=== PATIENT | male | born 2000 | race American Indian/Alaskan Native ===

== ENCOUNTER 2018-10-20 19:26 | Inpatient (IN) | payer OTHER ==
[2018-10-20] MEDS ORDERED: NACL 0.9% 1000 ML 1,000 ML IV ONE (20:24)
[2018-10-20 20:29] LABS: Basophils % (Auto) 0.3 % (0.0-1.8); Eosinophils % (Auto) 0.1 % (0.0-4.3); Hemoglobin 14.3 gm/dl (11.8-15.2); Lymphocytes # (Auto) 0.6 K/mm3 (1.2-5.4); Lymphocytes % (Auto) 6.1 % (13.4-35.0); Mean Corpuscular HGB Conc 33 % (32-34); Mean Corpuscular Volume 80 fl (84-94); Monocytes # (Auto) 0.5 K/mm3 (0.0-0.8); Monocytes % (Auto) 5.2 % (0.0-7.3); Platelet Count 238 K/mm3 (140-440); Red Blood Count 5.51 M/mm3 (3.65-5.03); Red Cell Distribution Width 14.4 % (13.2-15.2)
--- NOTE | 2018-10-20 20:42 | Emergency Department Report ---
HPI - General Chief Complaint: Psych Time Seen by Provider: 10/20/18 20:18 - HPI HPI: 18-year-old [place] male presents to the emergency department, brought in by his father, with concern for depression and possible suicide attempt and questionable overdose. Patient's father says that they were having trouble locating him for most of the day but recently found him [place] to work. He had sent a text message to them that insinuated that he was depressed and going to end his life. He apparently mentioned something to them regarding taking a nonspecific amount of Aleve, Tylenol and possibly some other medications. Although the patient has been awake since they found him, he has been mostly nonverbal and nonresponsive. He does have a diagnosed history of depression but has not been on his medications for about one year. ED Past Medical Hx - Past Medical History Previous Medical History?: Yes Hx Diabetes: Yes Hx Psychiatric Treatment: Yes (depression) Hx Dementia: Yes - Surgical History Past Surgical History?: No - Social History Smoking Status: Never Smoker Substance Use Type: None - Medications Home Medications: Home Medications Medication Instructions Recorded Confirmed Last Taken Type No Known Home Medications [No 10/20/18 10/20/18 Unknown History Reported Home Medications] ED Review of Systems ROS: Stated complaint: MH EVAL/SUICIDAL Other details as noted in HPI Comment: Unobtainable due to pts medical conditions Physical Exam - Physical Exam Physical Exam: GENERAL: The patient is well-developed well-nourished. HEENT: Normocephalic. Atraumatic. Patient has moist mucous membranes. EYES: Extraocular motions are intact. Pupils are equal and reactive to light bilaterally. NECK: Supple. Trachea is midline. CHEST/LUNGS: Clear to auscultation. There is no respiratory distress noted. HEART/CARDIOVASCULAR: Regular. There is mild tachycardia. There is no obvious murmur. ABDOMEN: Abdomen is soft, nontender. Patient has normal bowel sounds. There is no abdominal distention. SKIN: Skin is warm and dry. NEURO: Patient is awake but nonverbal. Patient follows some commands. MUSCULOSKELETAL: There is no tenderness or deformity. There is no limitation range of motion. There is no evidence of acute injury. ED Medical Decision Making - Lab Data Result diagrams: 10/20/18 20:22 10/20/18 20:22 - EKG Data -: EKG Interpreted by [facility] EKG shows normal: sinus rhythm, axis, intervals, QRS complexes (LVH), ST-T waves Rate: tachycardia (102 bpm) - EKG Data When compared to previous EKG there are: previous EKG unavailable Interpretation: LVH - Radiology Data Radiology results: report reviewed EXAM: CT HEAD/BRAIN WO CON HISTORY: AMS COMPARISON: None available. TECHNIQUE: Axial images obtained skull base through vertex. FINDINGS: No acute intracranial hemorrhage, midline shift or pathologic extra axial fluid collection. Ventricles and cisterns are normal in size and configuration for the patient's age. Ernandez-white differentiation preserved. Calvarium grossly intact. Ocular globes are grossly unremarkable. Visualized para-nasal sinuses and mastoid air cells are clear. IMPRESSION: No grossly acute intracranial abnormality. Transcribed By: LMA Dictated By: CHRISTO BAKER MD Electronically Authenticated By: CHRISTO BAKER MD Signed Date/Time: 10/21/18 0203 - Medical Decision Making Patient presents with suicidal ideations and suicide attempt via overdose. The patient has been nonverbal so the suicidal ideations comes from a text message that he sent to his family. Somehow the family was able to show that the patient potentially overdosed on some combination of Tylenol PM and Aleve PM. All the patient's labs were unremarkable except for the Tylenol level which came back at 219. This is a toxic dose for even a four-hour ingestion but this is closer to about 8 hours. There is no elevation in the patient's LFTs or coags . Discussed the case with poison control who agrees with the treatment of Mucomyst/Acetadote. The patient has already received the one hour bolus and is currently getting the four-hour 50 mg per KG dosing. He is set up for the 100 mg per KG 16 hour dosing to be given afterwards. CT scan of the head did not show any bleed, shift, mass, ischemia or any other acute process. The patient has been made a 1013 secondary to the suicidal ideations and attempt. He will be a medical admission and has been accepted for admission by the hospitalist, Dr. Ireland. Critical Care Time: No Critical care attestation.: If time is entered above; I have spent that time in minutes in the direct care of this critically ill patient, excluding procedure time. ED Disposition Clinical Impression: Suicidal ideations Suicide attempt by acetaminophen overdose Qualifiers: Encounter type: initial encounter Qualified Code(s): T39.1X2A - Poisoning by 4- Aminophenol derivatives, intentional self-harm, initial encounter Depression Qualifiers: Depression Type: unspecified Qualified Code(s): F32.9 - Major depressive di sorder, single episode, unspecified Acetaminophen toxicity Qualifiers: Encounter type: initial encounter Injury intent: intentional self-harm Qualified Code(s): T39.1X2A - Poisoning by 4-Aminophenol derivatives, intentional self-harm, initial encounter Disposition: 09 OP ADMIT IP TO THIS HOSP Is pt being admited?: Yes Condition: Serious Referrals: PRIMARY CARE, [Primary Care Provider] - 3-5 Days Time of Disposition: 02:11
[2018-10-20 20:45] LABS: BUN/Creatinine Ratio 6; Blood Urea Nitrogen 4 mg/dL (9-20); Calcium 9.2 mg/dL (8.4-10.2); Hemolysis Index 6
[2018-10-20] MEDS: KCL 10MEQ/100ML 10 MEQ/100 ML BAG IV SCH ×2 (21:25→22:41)
[2018-10-20] MEDS ORDERED: ACETADOTE IV ONE ×2 (21:50→22:00)
[2018-10-20] MEDS ORDERED: D5W IV ONE (22:00)
[2018-10-20] MEDS ORDERED: ZOFRAN ONE (22:14)
[2018-10-20 22:20] LABS: Alanine Aminotransferase 9 units/L (7-56)
[2018-10-20 22:29] LABS: Bilirubin,Direct < 0.2 mg/dL (0-0.2)
[2018-10-20 23:20] LABS: INR 1.03 (0.87-1.13)
[2018-10-20 23:21] LABS: Partial Thromboplastin Time 34.5 Sec. (24.2-36.6)
[2018-10-21] MEDS ORDERED: ZOFRAN IV PRN (01:43)
[2018-10-21] MEDS ORDERED: D50W (25GM) Syringe IV PRN (01:45)
--- NOTE | 2018-10-21 02:03 | Cat Scan Report ---
FINAL REPORT EXAM: CT HEAD/BRAIN WO CON HISTORY: AMS COMPARISON: None available. TECHNIQUE: Axial images obtained skull base through vertex. FINDINGS: No acute intracranial hemorrhage, midline shift or pathologic extra axial fluid collection. Ventricle s and cisterns are normal in size and configuration for the patient's age. Ernandez-white differentiation preserved. Calvarium grossly intact. Ocular globes are grossly unremarkable. Visualized para-nasal s inuses and mastoid air cells are clear. IMPRESSION: No grossly acute intracranial abnormality.
[2018-10-21 02:23] LABS: Bilirubin,Urine NEG (Negative); Blood,Urine NEG (Negative); Color,Urine Straw (Yellow); Mucus,Urine FEW /HPF; Protein,Urine <15 mg/dL mg/dL (Negative); Urobilinogen,Urine < 2.0 mg/dL (<2.0)
[2018-10-21 02:34] LABS: Amphetamine Screen,Urine PRESUMPTIVE NEGATIVE; Benzodiazepines Screen,Urine PRESUMPTIVE NEGATIVE; Cannabinoid Screen,Urine PRESUMPTIVE NEGATIVE; Cocaine Screen,Urine PRESUMPTIVE NEGATIVE; Methadone Screen,Urine PRESUMPTIVE NEGATIVE; Opiate Screen,Urine PRESUMPTIVE NEGATIVE
[2018-10-21 02:34] LABS: Alanine Aminotransferase 9 units/L (7-56); Albumin 4.7 g/dL (3.9-5)
[2018-10-21 02:42] LABS: Bilirubin,Direct < 0.2 mg/dL (0-0.2)
--- NOTE | 2018-10-21 02:46 | History and Physical Report ---
CHIEF COMPLAINT: Drug overdose with Tylenol and nonsteroidal anti-inflammatory agent Aleve. HISTORY OF PRESENT ILLNESS: The patient is a 18-year-old male with past medical history of depression and suicidal ideation in the past. The patient was noted by family to be out of communication for most of day and was found in [place] prior to work. The patient sent a text message to the parents saying that he was depressed and is going to end his live and mention that he took an unknown amount of Aleve and Tylenol, possibly with other substances. There was no history of nausea or vomiting and no history of fever. The patient has not been on his antidepressant medication for some time prior to taking these overdose and was brought to the Emergency Room. PAST MEDICAL HISTORY: Pertinent for diabetes mellitus, depression, suicidal intention. The patient also has past history of dementia, memory impairment. PAST SURGICAL HISTORY: Unremarkable. FAMILY HISTORY: Noncontributory. SOCIAL HISTORY: The patient does not smoke, does not drink alcohol, and does not use illicit drugs. MEDICATIONS: The patient's home medications are not known at this time. ALLERGIES: There are no known drug allergies. REVIEW OF SYSTEMS: CONSTITUTIONAL: There is no fever, no chills, no diaphoresis. HEENT: There is no headache or sore throat. CARDIOVASCULAR SYSTEM: There is no chest pain or orthopnea. RESPIRATORY SYSTEM: There is no shortness of breath or cough. GASTROINTESTINAL SYSTEM: There is no nausea, no vomiting, no abdominal pain, diarrhea or constipation. NEUROLOGICAL SYSTEM: Decreased responsiveness noted. MUSCULOSKELETAL SYSTEM: There is no joint pain or swelling. DERMATOLOGICAL SYSTEM: There is no skin rash or itching. GENITOURINARY SYSTEM: There is no dysuria, hematuria, or flank pain. Rest of system review is normal. PHYSICAL EXAMINATION: GENERAL: At the time of exam, the patient was found to be lethargic and arousable, not in acute distress. VITAL SIGNS: Shows temperature of 97.8 degrees Fahrenheit, pulse of 100, respirations 16, blood pressure 141/83, O2 sat of 100% on room air. HEENT: Shows pupils to be round, reactive to light, and accommodating. NECK: Supple with no JVD or carotid bruits. CARDIOVASCULAR SYSTEM: Showed normal first and second heart sounds with no gallops or murmurs. RESPIRATORY SYSTEM: Show good air entry on both sides of the lungs with no abnormal breath sounds. GASTROINTESTINAL SYSTEM: Show abdomen to be full, soft, nontender with no organomegaly or rigidity. NEUROLOGICAL: Shows the patient to be lethargic, but arousable with no focal deficit. MUSCULOSKELETAL SYSTEM: Show no joint swelling or tenderness. DERMATOLOGICAL SYSTEM: Show no skin rash. GENITOURINARY SYSTEM: Showing no costovertebral angle tenderness. PERTINENT LABORATORY DATA AND IMAGING STUDIES: The patient will be following lab test done. CBC showed normal white count, normal hemoglobin and normal hematocrit with CBC differential showed elevated segmented neutrophil count of 88.3%. The patient's coagulation studies were unremarkable. Chemistry shows a low sodium level of 3.3 and patient's renal function test was unremarkable and toxicology screen shows unremarkable salicylate level and high acetaminophen level of 219.3. Plasma alcohol level was unremarkable. IMAGING STUDIES: No imaging studies were done at this time. DIAGNOSES: 1. Drug overdose with Tylenol and Aleve. 2. Hypokalemia. PLAN: 1. The patient will be admitted to ICU. 2. The patient will continue the IV acetylcysteine treatment already programmed by the pharmacy according to the Emergency Room request. 3. The patient will be on heparin 5000 units subcutaneous q. 12 hours for DVT prophylaxis. 4. The patient will have Accu-chek before meal and at bedtime, followed by low-dose sliding scale using regular insulin coverage. 5. The patient will have liver function test checked every 4 hours and Tylenol level monitored every 4 hours until the level becomes normal. 6. The patient will be on IV normal saline at 125 mL an hour. 7. The patient will have critical care consult with Dr. Bass. 8. The patient will be on consistent carbohydrate diet and also be on IV Zofran 4 mg every 8 hours for nausea and vomiting. JOB# [id number] OCN/NTS MTDD
[2018-10-21] MEDS ORDERED: D5W IV ONE ×2 (04:00)
[2018-10-21] MEDS ORDERED: ACETADOTE IV ONE ×2 (04:00)
[2018-10-21] MEDS ORDERED: NACL 0.9% 1000 ML 1,000 ML ONE (06:11)
[2018-10-21 06:20] LABS: Albumin 4.9 g/dL (3.9-5); Bilirubin,Direct 0.2 mg/dL (0-0.2)
[2018-10-21] MEDS: NACL 0.9% 1000 ML 1,000 ML IV SCH ×2 (06:24→21:45)
[2018-10-21] MEDS: HumuLIN R SUB-Q SCH ×4 (09:06→21:50)
--- NOTE | 2018-10-21 09:30 | Consultation ---
History of Present Illness Consult date: 10/21/18 Requesting physician: ELENA MTZ Reason for consult: other (Tylenol overdose) History of present illness: 18 y.o. AA male who presented to the ER for overdosing on Tylenol. He stated that he is dealing with a lot "internally." He stated that he would like to talk tomorrow so he can get his thoughts together. He did acknowledge that he took several Tylenol pills to kill himself prior to his arrival to the ER. Also, he stated that he is having relationship issues at this time.Per his mother Dorie Santa and brother Reji Carias who was at the bedside, they stated that the patient sent out a text message stating that he wanted to kill himself yesterday. He currently denies any chest pain, no shortness of breath, no fevers or chills. - Past Medical History Previous Medical History?: Yes Hx Diabetes: Yes Hx Psychiatric Treatment: Yes (depression) Hx Dementia: Yes - Surgical History Past Surgical History?: No - Social History Smoking Status: Never Smoker Substance Use Type: None Medications and Allergies Allergies Allergy/AdvReac Type Severity Reaction Status Date / Time No Known Allergies Allergy Verified 10/20/18 21:11 Home Medications Medication Instructions Recorded Confirmed Last Taken Type Cetirizine HCl 5 mg PO DAILY 10/23/18 10/23/18 Unknown History Sertraline [Zoloft] 25 mg PO QDAY #30 tablet 10/24/18 Unknown Rx Active Meds: Active Medications Dextrose (D50w (25gm) Syringe) 50 ml IV PRN PRN PRN Reason: Hypoglycemia Heparin Sodium (Porcine) (Heparin) 5,000 unit SUB-Q Q12HR [facility]ED[facility] Acetylcysteine 5,443 mg/ (Dextrose) 1,027.215 mls @ 64.201 mls/hr IV ONCE ONE Stop: 10/21/18 19:59 Last Admin: 10/21/18 04:31 Dose: 64.201 mls/hr Documented by: Sodium Chloride (Nacl 0.9% 1000 Ml) 1,000 mls @ 125 mls/hr IV DIRECT FREDDY Last Admin: 10/21/18 06:24 Dose: 125 mls/hr Documented by: Insulin Human Regular (Humulin R) 0 units SUB-Q AC FREDDY; Protocol Last Admin: 10/21/18 09:06 Dose: Not Given Documented by: Insulin Human Regular (Humulin R) 0 units SUB-Q QHS [facility]; Protocol Ondansetron HCl (Zofran) 4 mg IV Q8H PRN PRN Reason: Nausea And Vomiting Physical Examination Vital signs: Vital Signs Pulse Resp BP Pulse Ox 109 H 24 148/87 100 10/20/18 20:31 10/20/18 20:31 10/20/18 20:31 10/20/18 20:31 GENERAL: The patient is well-developed well-nourished. HEENT: Normocephalic. Atraumatic. Patient has moist mucous membranes. EYES: Extraocular motions are intact. Pupils are equal and reactive to light bilaterally. NECK: Supple. Trachea is midline. CHEST/LUNGS: Clear to auscultation. There is no respiratory distress noted. HEART/CARDIOVASCULAR: Regular. There is mild tachycardia. There is no obvious murmur. ABDOMEN: Abdomen is soft, nontender. Patient has normal bowel sounds. There is no abdominal distention. SKIN: Skin is warm and dry. NEURO: Patient is awake but nonverbal. Patient follows some commands. MUSCULOSKELETAL: There is no tenderness or deformity. There is no limitation range of motion. There is no evidence of acute injury. Results - Laboratory Findings CBC and BMP: 10/20/18 20:22 10/22/18 13:35 PT/INR, D-dimer PT 13.9 Sec. (12.2-14.9) 10/20/18 22:47 INR 1.03 (0.87-1.13) 10/20/18 22:47 Abnormal lab findings: Abnormal Labs 10/20/18 10/20/18 10/20/18 20:22 20:22 20:22 RBC MCV MCH Lymph % (Auto) Lymph # Seg Neutrophils % Seg Neutrophils # Potassium 3.3 L BUN 4 L Creatinine 0.7 L Glucose 131 H POC Glucose Salicylates < 0.3 L Acetaminophen 219.3 H* 10/20/18 10/21/18 10/21/18 20:22 01:56 05:53 RBC 5.51 H MCV 80 L MCH 26 L Lymph % (Auto) 6.1 L Lymph # 0.6 L Seg Neutrophils % 88.3 H Seg Neutrophils # 9.1 H Potassium BUN Creatinine Glucose POC Glucose Salicylates Acetaminophen 197.1 H 109.6 H 10/21/18 06:07 RBC MCV MCH Lymph % (Auto) Lymph # Seg Neutrophils % Seg Neutrophils # Potassium BUN Creatinine Glucose POC Glucose 106 H Salicylates Acetaminophen Assessment and Plan Drug overdose of Tylenol Hypokalemia Depression Diabetes - N acetyl cysteine per poison control protocol -Monitor and trend liver enzymes and hepatic synthetic function -Psych evaluation on going, possibly for inpatient care once medically clear -IV fluids -Accuchecks with glycemic control -VTE prophylaxis -Anti-depressants, monitor for hepatotoxicity -Replete electrolytes as indicated
[2018-10-21 10:46] LABS: Albumin 4.6 g/dL (3.9-5); Bilirubin,Direct 0.2 mg/dL (0-0.2)
[2018-10-21] MEDS: HEPARIN SUB-Q SCH ×2 (10:53→21:45)
[2018-10-21] MEDS ORDERED: HEPARIN ONE (10:53)
--- NOTE | 2018-10-21 13:42 | Consultation ---
History of Present Illness - Reason for Consult Consult date: 10/21/18 Reason for consult: Mental Health Evaluation Requesting physician: MIKEY STONE - Chief Complaint Chief complaint: "I have a lot on my mind" - History of Present Psychiatric Illness 18 y.o. AA male who presented to the ER for overdosing on Tylenol. Today the patient is calm , but guarded during the assessment. He stated that he is dealing with a lot "internally." He stated that he would like to talk tomorrow so he can get his thoughts together. He did acknowledge that he took several Tylenol pills to kill himself prior to his arrival to the ER. Also, he stated that he is having relationship issues at this time. Per collateral information from his mother Dorie Santa and brother Reji Carias who was at the bedside, they stated that the patient sent out a text message stating that he wanted to kill himself yesterday. The patient denies SI/HI's and AVH's. Medications and Allergies Allergies Allergy/AdvReac Type Severity Reaction Status Date / Time No Known Allergies Allergy Verified 10/20/18 21:11 Home Medications Medication Instructions Recorded Confirmed Last Taken Type No Known Home Medications [No 10/20/18 10/20/18 Unknown History Reported Home Medications] Active Meds: Active Medications Dextrose (D50w (25gm) Syringe) 50 ml IV PRN PRN PRN Reason: Hypoglycemia Heparin Sodium (Porcine) (Heparin) 5,000 unit SUB-Q Q12HR FREDDY Last Admin: 10/21/18 10:53 Dose: 5,000 unit Documented by: Acetylcysteine 5,443 mg/ (Dextrose) 1,027.215 mls @ 64.201 mls/hr IV ONCE ONE Stop: 10/21/18 19:59 Last Admin: 10/21/18 04:31 Dose: 64.201 mls/hr Documented by: Sodium Chloride (Nacl 0.9% 1000 Ml) 1,000 mls @ 125 mls/hr IV DIRECT FREDDY Last Admin: 10/21/18 06:24 Dose: 125 mls/hr Documented by: Insulin Human Regular (Humulin R) 0 units SUB-Q FREDDY; Protocol Last Admin: 10/21/18 12:05 Dose: Not Given Documented by: Insulin Human Regular (Humulin R) 0 units SUB-Q QHS FRED[facility]; Protocol Ondansetron HCl (Zofran) 4 mg IV Q8H PRN PRN Reason: Nausea And Vomiting Past psychiatric history - Past Medical History Past Medical History: No medical history Past Surgical History: No surgical history - past Psychiatric treatment and history psychiatric treatment history: Denies a psy hx and fam psy hx. Denies a fam psy hx. - Social History Social history: lives with family Mental Status Exam - Vital signs Last Vital Signs Temp 98.8 F 10/21/18 12:00 Pulse 93 H 10/21/18 12:00 Resp 20 10/21/18 12:00 BP 129/84 10/21/18 12:00 Pulse Ox 96 10/21/18 12:00 - Exam Narrative exam: MSE: Appearance: calm, cooperative Behavior: poor eye contact Speech: regular rate with a low tone Mood: guarded Affect: flat Thought Process: circumstantial Thought Content: denies SI/HI's and AVH's Motor Activity: sitting up in bed Cognition: A/O x3 Insight: variable Judgment: variable Results Result Diagrams: 10/20/18 20:22 10/20/18 20:22 Abnormal lab results 10/20/18 10/20/18 10/20/18 Range/Units 20:22 20:22 20:22 RBC (3.65-5.03) M/mm3 MCV (84-94) fl MCH (28-32) pg Lymph % (Auto) (13.4-35.0) % Lymph # (1.2-5.4) K/mm3 Seg Neutrophils % (40.0-70.0) % Seg Neutrophils # (1.8-7.7) K/mm3 Potassium 3.3 L (3.6-5.0) mmol/L BUN 4 L (9-20) mg/dL Creatinine 0.7 L (0.8-1.5) mg/dL Glucose 131 H (75-100) mg/dL POC Glucose (70-105) Total Bilirubin (0.1-1.2) mg/dL Salicylates < 0.3 L (2.8-20.0) mg/dL Acetaminophen 219.3 H* (10.0-30.0) ug/mL 10/20/18 10/21/18 10/21/18 Range/Units 20:22 01:56 05:53 RBC 5.51 H (3.65-5.03) M/mm3 MCV 80 L (84-94) fl MCH 26 L (28-32) pg Lymph % (Auto) 6.1 L (13.4-35.0) % Lymph # 0.6 L (1.2-5.4) K/mm3 Seg Neutrophils % 88.3 H (40.0-70.0) % Seg Neutrophils # 9.1 H (1.8-7.7) K/mm3 Potassium (3.6-5.0) mmol/L BUN (9-20) mg/dL Creatinine (0.8-1.5) mg/dL Glucose (75-100) mg/dL POC Glucose (70-105) Total Bilirubin (0.1-1.2) mg/dL Salicylates (2.8-20.0) mg/dL Acetaminophen 197.1 H 109.6 H (10.0-30.0) ug/mL 10/21/18 10/21/18 10/21/18 Range/Units 06:07 09:36 09:36 RBC (3.65-5.03) M/mm3 MCV (84-94) fl MCH (28-32) pg Lymph % (Auto) (13.4-35.0) % Lymph # (1.2-5.4) K/mm3 Seg Neutrophils % (40.0-70.0) % Seg Neutrophils # (1.8-7.7) K/mm3 Potassium (3.6-5.0) mmol/L BUN (9-20) mg/dL Creatinine (0.8-1.5) mg/dL Glucose (75-100) mg/dL POC Glucose 106 H (70-105) Total Bilirubin 1.40 H (0.1-1.2) mg/dL Salicylates (2.8-20.0) mg/dL Acetaminophen 53.7 H (10.0-30.0) ug/mL All other labs normal. Assessment and Plan Assessment and plan: Impression: MDD, Severe Type. Today the patient is calm, but guarded during the assessment. Tylenol level 53.7, trending downward. DDx: R/O Bipolar DO Recommendation/Plan: Continue 1013 and reassess the patient in 24 hours. Dispo: The patient will be referred to inpatient psy services once medically clear. Will staff with Dr Mariusz Meza.
[2018-10-21 14:44] LABS: Albumin 4.3 g/dL (3.9-5); Bilirubin,Direct 0.3 mg/dL (0-0.2)
[2018-10-22] MEDS: HumuLIN R SUB-Q SCH ×4 (07:30→21:44)
--- NOTE | 2018-10-22 09:04 | Progress Note ---
Assessment and Plan Patient alert, awake. Resting on room air.O2 saturation 98%. No complaint of chest pain, shortness of breath or abdominal pain.Patients Bilirubin 1.6. AST 11. ALT 7. Continue monitor liver enzymes. - Patient Problems (1) Acetaminophen toxicity Current Visit: Yes Status: Acute Qualifiers: Encounter type: initial encounter Injury intent: intentional self-harm Qualified Code(s): T39.1X2A - Poisoning by 4-Aminophenol derivatives, intentional self-harm, initial encounter Plan to address problem: Patient received N acetyl cysteine. Patients Bilirubin 1.6. AST 11, ALT 7. Continue monitor bilirubin and Liver enzymes. (2) Depression Current Visit: Yes Status: Acute Qualifiers: Depression Type: unspecified Qualified Code(s): F32.9 - Major depressive disorder, single episode, unspecified Plan to address problem: Management as per primary care and psychiatry. (3) Suicidal ideations Current Visit: Yes Status: Acute Plan to address problem: Recommend to consult psychiatry. Subjective Date of service: 10/22/18 Interval history: Patient alert, awake. Resting on room air.O2 saturation 98%. No complaint of chest pain, shortness of breath or abdominal pain. Patients Bilirubin 1.6. AST 11. ALT 7. Continue monitor liver enzymes. Objective Vital Signs - 12hr 10/21/18 10/22/18 10/22/18 21:00 01:12 06:13 Temperature 97.7 F 98.2 F Pulse Rate 53 L 63 Respiratory 20 18 18 Rate Blood Pressure 112/61 102/54 O2 Sat by Pulse 98 100 98 Oximetry 10/22/18 06:15 Temperature Pulse Rate 63 Respiratory Rate Blood Pressure O2 Sat by Pulse Oximetry Constitutional: no acute distress, alert Eyes: non-icteric ENT: oropharynx moist Ascultation: Bilateral: clear Cardiovascular: regular rate and rhythm Gastrointestinal: normoactive bowel sounds, soft, non-tender Integumentary: normal Extremities: no cyanosis, no edema Neurologic: normal mental status, non-focal exam, pupils equal and round, CN II- XII normal Psychiatric: mood appropriate CBC and BMP: 10/20/18 20:22 10/20/18 20:22 ABG, PT/INR, D-dimer: PT/INR, D-dimer PT 13.9 Sec. (12.2-14.9) 10/20/18 22:47 INR 1.03 (0.87-1.13) 10/20/18 22:47 Abnormal lab findings: Abnormal Labs 10/20/18 10/20/18 10/20/18 20:22 20:22 20:22 RBC MCV MCH Lymph % (Auto) Lymph # Seg Neutrophils % Seg Neutrophils # Potassium 3.3 L BUN 4 L Creatinine 0.7 L Glucose 131 H POC Glucose Total Bilirubin Direct Bilirubin Salicylates < 0.3 L Acetaminophen 219.3 H* 10/20/18 10/21/18 10/21/18 20:22 01:56 05:53 RBC 5.51 H MCV 80 L MCH 26 L Lymph % (Auto) 6.1 L Lymph # 0.6 L Seg Neutrophils % 88.3 H Seg Neutrophils # 9.1 H Potassium BUN Creatinine Glucose POC Glucose Total Bilirubin Direct Bilirubin Salicylates Acetaminophen 197.1 H 109.6 H 10/21/18 10/21/18 10/21/18 06:07 09:36 09:36 RBC MCV MCH Lymph % (Auto) Lymph # Seg Neutrophils % Seg Neutrophils # Potassium BUN Creatinine Glucose POC Glucose 106 H Total Bilirubin 1.40 H Direct Bilirubin Salicylates Acetaminophen 53.7 H 10/21/18 10/21/18 14:21 17:26 RBC MCV MCH Lymph % (Auto) Lymph # Seg Neutrophils % Seg Neutrophils # Potassium BUN Creatinine Glucose POC Glucose 115 H Total Bilirubin 1.60 H Direct Bilirubin 0.3 H Salicylates Acetaminophen
[2018-10-22] MEDS: NACL 0.9% 1000 ML 1,000 ML IV SCH ×2 (10:02→20:04)
[2018-10-22] MEDS: HEPARIN SUB-Q SCH ×2 (10:02→21:44)
--- NOTE | 2018-10-22 11:35 | XRay Report ---
AP CHEST: HISTORY: Possible aspiration AP view of the chest demonstrates a normal mediastinal and cardiac contour with clear lungs and normal bony and soft tissue structures. IMPRESSION: Unremarkable AP chest.
--- NOTE | 2018-10-22 12:42 | Progress Note ---
Assessment and Plan Assessment and plan: 19-year-old man with history of depression and previous suicide attempts. The patient was brought by his family for altered mental status. He had taken an unknown amounts of Aleve and Tylenol and possibly other substances. His labs indicated a very high acetaminophen level. Past medical history includes diabetes, depression, depression with suicidal intention Problems Drug overdose of Tylenol Hypokalemia Depression Diabetes Plan Patient has been treated with acetylcysteine for poison control protocol. tylenol level no longer elevated, continue IV fluids Insulin sliding scale for diabetes Repeat comprehensive metabolic panel today Psychiatric input appreciated, patient will be referred to inpatient psychiatric facility DVT prophylaxis and early ambulation History Interval history: Review of systems Constitutional: No fevers, no malaise, no joint pains CVS: No chest pain, no orthopnea, no dyspnea on exertion, no pedal edema GI: No abdominal pain, no diarrhea, no vomiting, no constipation Respiratory: No shortness of breath, no wheezing, no coughing Hospitalist Physical - Physical exam Narrative exam: General.: Appears well, no distress, nontoxic HEENT: Moist mucous membranes, extraocular muscles intact, no lymphadenopathy Neck: supple Cardiac: S1-S2 heard Lungs: clear to auscultation bilaterally Abdomen: soft , nontender, nondistended, bowel sounds positive Extremities: no edema clubbing or cyanosis Skin: no rash or lesions Neurologic: no gross focal deficits Psych: , calm and Cooperative - Constitutional Vitals: Temp Pulse Resp BP Pulse Ox 97.9 F 72 18 123/69 98 10/22/18 11:45 10/22/18 11:45 10/22/18 11:45 10/22/18 11:45 10/22/18 11:45 Results - Labs CBC & Chem 7: 10/20/18 20:22 10/20/18 20:22 Labs: Laboratory Last Values WBC 10.4 K/mm3 (4.5-11.0) 10/20/18 20:22 RBC 5.51 M/mm3 (3.65-5.03) H 10/20/18 20:22 Hgb 14.3 gm/dl (11.8-15.2) 10/20/18 20:22 Hct 44.0 % (35.5-45.6) 10/20/18 20:22 MCV 80 fl (84-94) L 10/20/18 20:22 MCH 26 pg (28-32) L 10/20/18 20:22 MCHC 33 % (32-34) 10/20/18 20:22 RDW 14.4 % (13.2-15.2) 10/20/18 20:22 Plt Count 238 K/mm3 (140-440) 10/20/18 20:22 Lymph % (Auto) 6.1 % (13.4-35.0) L 10/20/18 20:22 [place] % (Auto) 5.2 % (0.0-7.3) 10/20/18 20:22 Eos % (Auto) 0.1 % (0.0-4.3) 10/20/18 20:22 Baso % (Auto) 0.3 % (0.0-1.8) 10/20/18 20:22 Lymph # 0.6 K/mm3 (1.2-5.4) L 10/20/18 20:22 [place] # 0.5 K/mm3 (0.0-0.8) 10/20/18 20:22 Eos # 0.0 K/mm3 (0.0-0.4) 10/20/18 20:22 Baso # 0.0 K/mm3 (0.0-0.1) 10/20/18 20:22 Seg Neutrophils % 88.3 % (40.0-70.0) H 10/20/18 20:22 Seg Neutrophils # 9.1 K/mm3 (1.8-7.7) H 10/20/18 20:22 PT 13.9 Sec. (12.2-14.9) 10/20/18 22:47 INR 1.03 (0.87-1.13) 10/20/18 22:47 APTT 34.5 Sec. (24.2-36.6) 10/20/18 22:47 VBG pH 7.380 (7.320-7.420) 10/20/18 20:59 Sodium 142 mmol/L (137-145) 10/20/18 20:22 Potassium 3.3 mmol/L (3.6-5.0) L 10/20/18 20:22 Chloride 103.4 mmol/L (98-107) 10/20/18 20:22 Carbon Dioxide 25 mmol/L (22-30) 10/20/18 20:22 Anion Gap 17 mmol/L 10/20/18 20:22 BUN 4 mg/dL (9-20) L 10/20/18 20:22 Creatinine 0.7 mg/dL (0.8-1.5) L 10/20/18 20:22 Estimated GFR > 60 ml/min 10/20/18 20:22 BUN/Creatinine Ratio 6 % 10/20/18 20:22 Glucose 131 mg/dL (75-100) H 10/20/18 20:22 POC Glucose 81 (70-105) 10/21/18 21:48 Calcium 9.2 mg/dL (8.4-10.2) 10/20/18 20:22 Total Bilirubin 1.60 mg/dL (0.1-1.2) H 10/21/18 14:21 Direct Bilirubin 0.3 mg/dL (0-0.2) H 10/21/18 14:21 Indirect Bilirubin 1.3 mg/dL 10/21/18 14:21 AST 11 units/L (5-40) 10/21/18 14:21 ALT 7 units/L (7-56) 10/21/18 14:21 Alkaline Phosphatase 52 units/L (35-129) 10/21/18 14:21 Total Protein 6.7 g/dL (6.3-8.2) 10/21/18 14:21 Albumin 4.3 g/dL (3.9-5) 10/21/18 14:21 Albumin/Globulin Ratio 1.8 % 10/21/18 14:21 Urine Color Straw (Yellow) 10/21/18 02:14 Urine Turbidity Clear (Clear) 10/21/18 02:14 Urine pH 6.0 (5.0-7.0) 10/21/18 02:14 Ur Specific [place] 1.014 (1.003-1.030) 10/21/18 02:14 Urine Protein <15 mg/dl mg/dL (Negative) 10/21/18 02:14 Urine Glucose (UA) 50 mg/dL (Negative) 10/21/18 02:14 Urine Ketones 80 mg/dL (Negative) 10/21/18 02:14 Urine Blood Neg (Negative) 10/21/18 02:14 Urine Nitrite Neg (Negative) 10/21/18 02:14 Urine Bilirubin Neg (Negative) 10/21/18 02:14 Urine Urobilinogen < 2.0 mg/dL (<2.0) 10/21/18 02:14 Ur Leukocyte Esterase Neg (Negative) 10/21/18 02:14 Urine WBC (Auto) 1.0 /HPF (0.0-6.0) 10/21/18 02:14 Urine RBC (Auto) 1.0 /HPF (0.0-6.0) 10/21/18 02:14 U Epithel Cells (Auto) < 1.0 /HPF (0-13.0) 10/21/18 02:14 Urine Mucus Few /HPF 10/21/18 02:14 Salicylates < 0.3 mg/dL (2.8-20.0) L 10/20/18 20:22 Urine Opiates Screen Presumptive negative 10/21/18 02:14 Urine Methadone Screen Presumptive negative 10/21/18 02:14 Acetaminophen 24.4 ug/mL (10.0-30.0) 10/21/18 14:21 Ur Barbiturates Screen Presumptive negative 10/21/18 02:14 Ur Phencyclidine Scrn Presumptive negative 10/21/18 02:14 Ur Amphetamines Screen Presumptive negative 10/21/18 02:14 U Benzodiazepines Scrn Presumptive negative 10/21/18 02:14 Urine Cocaine Screen Presumptive negative 10/21/18 02:14 U Marijuana (THC) Screen Presumptive negative 10/21/18 02:14 Drugs of Abuse Note Disclamer 10/21/18 02:14 Plasma/Serum Alcohol < 0.01 % (0-0.07) 10/20/18 20:22
[2018-10-22 14:19] LABS: Alanine Aminotransferase 8 units/L (7-56); BUN/Creatinine Ratio 12; Blood Urea Nitrogen 7 mg/dL (9-20); Calcium 8.9 mg/dL (8.4-10.2); Hemolysis Index 19
--- NOTE | 2018-10-22 14:19 | Progress Note ---
Subjective - Reason for Consult Consult date: 10/22/18 Reason for consult: Psychiatric Follow-up Evaluation - Chief Complaint Chief complaint: "I feel good" Patient is a 18 y.o. AA male who presented to the ER for overdosing on Tylenol. Today the patient is calm and cooperative during the assessment. He appears to have a good support system. Patient's mom, dad, and sister at the bedside. He states that his stressors are related to his current relationship/financial stressors. Patient believes that he is not living up to his full potential. He reports fair sleep/appetite. He denies SI/HI's, A/VH's, and delusions . Today patient is less guarded. In the past patient reports that he has taken Prozac, which he thought was ineffective. Today patient expressed that he is willing to try medication management. Mental Status Exam - Vital signs Last Vital Signs Temp 97.9 F 10/22/18 11:45 Pulse 72 10/22/18 11:45 Resp 18 10/22/18 11:45 BP 123/69 10/22/18 11:45 Pulse Ox 98 10/22/18 11:45 - Exam Narrative exam: Mental Status Exam Appearance: calm, cooperative Behavior: regular eye contact Speech: regular rate with a low tone Mood: "I'm good"; less guarded Affect: constricted Thought Process: circumstantial Thought Content: denies SI/HI's, AVH's, delusions Motor Activity: sitting up in bed eating Cognition: A/O x3 Insight: variable Judgment: variable Assessment and Plan Impression: MDD, Severe Type. Today the patient is calm, but guarded during the assessment. Tylenol level 24.4, trending downward. Patient denies SI/HI's, A/VH's, and delusions. DDx: R/O Bipolar DO Recommendation/Plan: 1. Continue 1013 and reassess the patient in 24 hours. 2. Start Zoloft 25mg po QAM depression/anxiety. Discussed the possibility of increase suicidality/induced taj. Patient verbalizes understanding. 3. Will monitor mood, sleep, appetite, compliance, and side effects. Disposition: The patient will be referred to inpatient psychiatric services once medically clear. Will staff with Dr. Adwoa Meza.
[2018-10-22] MEDS ORDERED: TYLENOL PO PRN (17:01)
[2018-10-23] MEDS: NACL 0.9% 1000 ML 1,000 ML IV SCH ×2 (03:46→10:54)
[2018-10-23] MEDS: HumuLIN R SUB-Q SCH ×4 (07:30→21:57)
[2018-10-23] MEDS: ZOLOFT PO SCH (10:54)
[2018-10-23] MEDS: HEPARIN SUB-Q SCH ×2 (10:54→21:57)
--- NOTE | 2018-10-23 12:18 | Progress Note ---
Subjective - Reason for Consult Consult date: 10/23/18 Reason for consult: Psychiatry Follow-up - Chief Complaint Chief complaint: "I would like to go home" Patient is a 18 y.o. AA male who presented to the ER for overdosing on Tylenol. Today the patient is calm and cooperative during the assessment. He stated that he have some underlining issues that caused him to be depressed and overdose on Tylenol pills. He stated that he plan to reflect on his issues and discuss those things with me the provider tomorrow. He did state that his mental health is "better" today. He denies SI/HI's and AVH's. He denies any side effects of hie medication. His mother Dorie Santa was at the bedside. Mental Status Exam - Vital signs Last Vital Signs Temp 97.4 F L 10/23/18 11:17 Pulse 67 10/23/18 11:17 Resp 20 10/23/18 11:17 BP 124/71 10/23/18 11:17 Pulse Ox 99 10/23/18 11:17 - Exam Narrative exam: MSE: Appearance: calm, cooperative Behavior: regular eye contact Speech: regular rate and tone Mood: "okay" Affect: flat Thought Process: circumstantial Thought Content: denies HI's and AVH's Motor Activity: sitting up in bed Cognition: A/O x3 Insight: fair Judgment: variable Assessment and Plan Impression: MDD, Severe Type. Today the patient is calm and cooperative during the assessment. Tylenol level 24.4. DDx: R/O Bipolar DO Recommendation/Plan: Continue 1013 and Zoloft 25 mg PO daily for depression. Discussed possible suicidality/medication induced taj with the patient reference Zoloft. Dispo: The patient will be referred to inpatient psy services once medically clear. Will staff with Dr Jenkins.
--- NOTE | 2018-10-23 13:53 | Progress Note ---
Assessment and Plan Assessment and plan: 19-year-old man with history of depression and previous suicide attempts. The patient was brought by his family for altered mental status. He had taken an unknown amounts of Aleve and Tylenol and possibly other substances. His labs indicated a very high acetaminophen level. Past medical history includes diabetes, depression, depression with suicidal intention Problems Drug overdose of Tylenol Hypokalemia Depression Diabetes Plan Patient has been treated with acetylcysteine for poison control protocol. tylenol level no longer elevated, received IVF Insulin sliding scale for diabetes Medically optimized for dc to inpatient y facility Psychiatric input appreciated, patient will be referred to inpatient psychiatric facility DVT prophylaxis and early ambulation History Interval history: Review of systems Constitutional: No fevers, no malaise, no joint pains CVS: No chest pain, no orthopnea, no dyspnea on exertion, no pedal edema GI: No abdominal pain, no diarrhea, no vomiting, no constipation Respiratory: No shortness of breath, no wheezing, no coughing Hospitalist Physical - Physical exam Narrative exam: General.: Appears well, no distress, nontoxic HEENT: Moist mucous membranes, extraocular muscles intact, no lymphadenopathy Neck: supple Cardiac: S1-S2 heard Lungs: clear to auscultation bilaterally Abdomen: soft , nontender, nondistended, bowel sounds positive Extremities: no edema clubbing or cyanosis Skin: no rash or lesions Neurologic: no gross focal deficits Psych: , calm and Cooperative - Constitutional Vitals: Temp Pulse Resp BP Pulse Ox 97.4 F L 67 20 124/71 99 10/23/18 11:17 10/23/18 11:17 10/23/18 11:17 10/23/18 11:17 10/23/18 11:17 Results - Labs CBC & Chem 7: 10/20/18 20:22 10/22/18 13:35 Labs: Laboratory Last Values WBC 10.4 K/mm3 (4.5-11.0) 10/20/18 20:22 RBC 5.51 M/mm3 (3.65-5.03) H 10/20/18 20:22 Hgb 14.3 gm/dl (11.8-15.2) 10/20/18 20:22 Hct 44.0 % (35.5-45.6) 10/20/18 20:22 MCV 80 fl (84-94) L 10/20/18 20:22 MCH 26 pg (28-32) L 10/20/18 20:22 MCHC 33 % (32-34) 10/20/18 20:22 RDW 14.4 % (13.2-15.2) 10/20/18 20:22 Plt Count 238 K/mm3 (140-440) 10/20/18 20:22 Lymph % (Auto) 6.1 % (13.4-35.0) L 10/20/18 20:22 [place] % (Auto) 5.2 % (0.0-7.3) 10/20/18 20:22 Eos % (Auto) 0.1 % (0.0-4.3) 10/20/18 20:22 Baso % (Auto) 0.3 % (0.0-1.8) 10/20/18 20:22 Lymph # 0.6 K/mm3 (1.2-5.4) L 10/20/18 20:22 [place] # 0.5 K/mm3 (0.0-0.8) 10/20/18 20:22 Eos # 0.0 K/mm3 (0.0-0.4) 10/20/18 20:22 Baso # 0.0 K/mm3 (0.0-0.1) 10/20/18 20:22 Seg Neutrophils % 88.3 % (40.0-70.0) H 10/20/18 20:22 Seg Neutrophils # 9.1 K/mm3 (1.8-7.7) H 10/20/18 20:22 PT 13.9 Sec. (12.2-14.9) 10/20/18 22:47 INR 1.03 (0.87-1.13) 10/20/18 22:47 APTT 34.5 Sec. (24.2-36.6) 10/20/18 22:47 VBG pH 7.380 (7.320-7.420) 10/20/18 20:59 Sodium 141 mmol/L (137-145) 10/22/18 13:35 Potassium 4.1 mmol/L (3.6-5.0) D 10/22/18 13:35 Chloride 105.1 mmol/L (98-107) 10/22/18 13:35 Carbon Dioxide 26 mmol/L (22-30) 10/22/18 13:35 Anion Gap 14 mmol/L 10/22/18 13:35 BUN 7 mg/dL (9-20) L 10/22/18 13:35 Creatinine 0.6 mg/dL (0.8-1.5) L 10/22/18 13:35 Estimated GFR > 60 ml/min 10/22/18 13:35 BUN/Creatinine Ratio 12 % 10/22/18 13:35 Glucose 94 mg/dL (75-100) 10/22/18 13:35 POC Glucose 90 (70-105) 10/22/18 21:19 Calcium 8.9 mg/dL (8.4-10.2) 10/22/18 13:35 Total Bilirubin 0.60 mg/dL (0.1-1.2) 10/22/18 13:35 Direct Bilirubin 0.3 mg/dL (0-0.2) H 10/21/18 14:21 Indirect Bilirubin 1.3 mg/dL 10/21/18 14:21 AST 11 units/L (5-40) 10/22/18 13:35 ALT 8 units/L (7-56) 10/22/18 13:35 Alkaline Phosphatase 48 units/L (35-129) 10/22/18 13:35 Total Protein 6.0 g/dL (6.3-8.2) L 10/22/18 13:35 Albumin 4.0 g/dL (3.9-5) 10/22/18 13:35 Albumin/Globulin Ratio 2.0 % 10/22/18 13:35 Urine Color Straw (Yellow) 10/21/18 02:14 Urine Turbidity Clear (Clear) 10/21/18 02:14 Urine pH 6.0 (5.0-7.0) 10/21/18 02:14 Ur Specific [place] 1.014 (1.003-1.030) 10/21/18 02:14 Urine Protein <15 mg/dl mg/dL (Negative) 10/21/18 02:14 Urine Glucose (UA) 50 mg/dL (Negative) 10/21/18 02:14 Urine Ketones 80 mg/dL (Negative) 10/21/18 02:14 Urine Blood Neg (Negative) 10/21/18 02:14 Urine Nitrite Neg (Negative) 10/21/18 02:14 Urine Bilirubin Neg (Negative) 10/21/18 02:14 Urine Urobilinogen < 2.0 mg/dL (<2.0) 10/21/18 02:14 Ur Leukocyte Esterase Neg (Negative) 10/21/18 02:14 Urine WBC (Auto) 1.0 /HPF (0.0-6.0) 10/21/18 02:14 Urine RBC (Auto) 1.0 /HPF (0.0-6.0) 10/21/18 02:14 U Epithel Cells (Auto) < 1.0 /HPF (0-13.0) 10/21/18 02:14 Urine Mucus Few /HPF 10/21/18 02:14 Salicylates < 0.3 mg/dL (2.8-20.0) L 10/20/18 20:22 Urine Opiates Screen Presumptive negative 10/21/18 02:14 Urine Methadone Screen Presumptive negative 10/21/18 02:14 Acetaminophen 24.4 ug/mL (10.0-30.0) 10/21/18 14:21 Ur Barbiturates Screen Presumptive negative 10/21/18 02:14 Ur Phencyclidine Scrn Presumptive negative 10/21/18 02:14 Ur Amphetamines Screen Presumptive negative 10/21/18 02:14 U Benzodiazepines Scrn Presumptive negative 10/21/18 02:14 Urine Cocaine Screen Presumptive negative 10/21/18 02:14 U Marijuana (THC) Screen Presumptive negative 10/21/18 02:14 Drugs of Abuse Note Disclamer 10/21/18 02:14 Plasma/Serum Alcohol < 0.01 % (0-0.07) 10/20/18 20:22
--- NOTE | 2018-10-23 13:54 | Progress Note ---
Assessment and Plan Tylenol Overdose Suicidal Ideation Depression Diabetes - continue 1 on 1 sitter - prn oxygen for sats < 90% - complete psychiatry evaluation - PT/OT - GI & VTE prophylaxis - continue other care per attending / other consultants ... will see prn Subjective Date of service: 10/23/18 Principal diagnosis: Tylenol Overdose; Deppression; Diabetes Interval history: Patient is seen today for: Tylenol Overdose; Suicidal Ideation; Depression; Diabetes Seen and examined at bedside; 24hour events reviewed; nursing and respiratory care staff consulted; no adverse overnight events reported to me; up in chair; family visiting; feels better; denies acute chest pains or palpitations; no new issues otherwise Objective Vital Signs - 12hr 10/23/18 10/23/18 10/23/18 05:44 06:45 11:17 Temperature 97.9 F 97.4 F L Pulse Rate 58 L 57 L 67 Respiratory 16 20 Rate Blood Pressure 111/57 Blood Pressure 124/71 [Right] O2 Sat by Pulse 99 99 Oximetry Constitutional: no acute distress, alert Eyes: non-icteric ENT: oropharynx moist Neck: supple, no lymphadenopathy, no JVD Effort: normal Ascultation: Bilateral: clear Percussion: Bilateral: not dull Cardiovascular: regular rate and rhythm Gastrointestinal: normoactive bowel sounds, soft, non-tender, non-distended Integumentary: normal Extremities: no cyanosis, no edema, pulses normal, no ischemia or petechiae Neurologic: normal mental status, non-focal exam, pupils equal and round, CN II- XII normal Psychiatric: mood appropriate, affect normal CBC and BMP: 10/20/18 20:22 10/22/18 13:35 ABG, PT/INR, D-dimer: PT/INR, D-dimer PT 13.9 Sec. (12.2-14.9) 10/20/18 22:47 INR 1.03 (0.87-1.13) 10/20/18 22:47 Abnormal lab findings: Abnormal Labs 10/20/18 10/20/18 10/20/18 20:22 20:22 20:22 RBC MCV MCH Lymph % (Auto) Lymph # Seg Neutrophils % Seg Neutrophils # Potassium 3.3 L BUN 4 L Creatinine 0.7 L Glucose 131 H POC Glucose Total Bilirubin Direct Bilirubin Total Protein Salicylates < 0.3 L Acetaminophen 219.3 H* 10/20/18 10/21/18 10/21/18 20:22 01:56 05:53 RBC 5.51 H MCV 80 L MCH 26 L Lymph % (Auto) 6.1 L Lymph # 0.6 L Seg Neutrophils % 88.3 H Seg Neutrophils # 9.1 H Potassium BUN Creatinine Glucose POC Glucose Total Bilirubin Direct Bilirubin Total Protein Salicylates Acetaminophen 197.1 H 109.6 H 10/21/18 10/21/18 10/21/18 06:07 09:36 09:36 RBC MCV MCH Lymph % (Auto) Lymph # Seg Neutrophils % Seg Neutrophils # Potassium BUN Creatinine Glucose POC Glucose 106 H Total Bilirubin 1.40 H Direct Bilirubin Total Protein Salicylates Acetaminophen 53.7 H 10/21/18 10/21/18 10/22/18 14:21 17:26 13:35 RBC MCV MCH Lymph % (Auto) Lymph # Seg Neutrophils % Seg Neutrophils # Potassium BUN 7 L Creatinine 0.6 L Glucose POC Glucose 115 H Total Bilirubin 1.60 H Direct Bilirubin 0.3 H Total Protein 6.0 L Salicylates Acetaminophen Chest x-ray: image reviewed (no acute process) Allied health notes reviewed: nursing
[2018-10-23] MEDS ORDERED: BENADRYL PO PRN (14:12)
[2018-10-23] MEDS ORDERED: CETIRIZINE HCL 5 MG PO SCH (14:15)
--- NOTE | 2018-10-24 07:44 | Progress Note ---
Assessment and Plan Assessment and plan: 19-year-old man with history of depression and previous suicide attempts. The patient was brought by his family for altered mental status. He had taken an unknown amounts of Aleve and Tylenol and possibly other substances. His labs indicated a very high acetaminophen level. Past medical history includes diabetes, depression, depression with suicidal intention Problems Drug overdose of Tylenol Hypokalemia Depression Diabetes Plan Patient has been treated with acetylcysteine for poison control protocol. tylenol level no longer elevated, received IVF Insulin sliding scale for diabetes Medically optimized for dc to inpatient y facility Psychiatric input appreciated, patient will be referred to inpatient psychiatric facility DVT prophylaxis and early ambulation History Interval history: Review of systems Constitutional: No fevers, no malaise, no joint pains CVS: No chest pain, no orthopnea, no dyspnea on exertion, no pedal edema GI: No abdominal pain, no diarrhea, no vomiting, no constipation Respiratory: No shortness of breath, no wheezing, no coughing Hospitalist Physical - Physical exam Narrative exam: General.: Appears well, no distress, nontoxic HEENT: Moist mucous membranes, extraocular muscles intact, no lymphadenopathy Neck: supple Cardiac: S1-S2 heard Lungs: clear to auscultation bilaterally Abdomen: soft , nontender, nondistended, bowel sounds positive Extremities: no edema clubbing or cyanosis Skin: no rash or lesions Neurologic: no gross focal deficits Psych: , calm and Cooperative - Constitutional Vitals: Temp Pulse Resp BP Pulse Ox 98.2 F 100 H 24 133/69 100 10/24/18 04:17 10/24/18 04:17 10/24/18 04:17 10/24/18 04:17 10/24/18 04:17 Results - Labs CBC & Chem 7: 10/20/18 20:22 10/22/18 13:35 Labs: Laboratory Last Values WBC 10.4 K/mm3 (4.5-11.0) 10/20/18 20:22 RBC 5.51 M/mm3 (3.65-5.03) H 10/20/18 20:22 Hgb 14.3 gm/dl (11.8-15.2) 10/20/18 20:22 Hct 44.0 % (35.5-45.6) 10/20/18 20:22 MCV 80 fl (84-94) L 10/20/18 20:22 MCH 26 pg (28-32) L 10/20/18 20:22 MCHC 33 % (32-34) 10/20/18 20:22 RDW 14.4 % (13.2-15.2) 10/20/18 20:22 Plt Count 238 K/mm3 (140-440) 10/20/18 20:22 Lymph % (Auto) 6.1 % (13.4-35.0) L 10/20/18 20:22 [place] % (Auto) 5.2 % (0.0-7.3) 10/20/18 20:22 Eos % (Auto) 0.1 % (0.0-4.3) 10/20/18 20:22 Baso % (Auto) 0.3 % (0.0-1.8) 10/20/18 20:22 Lymph # 0.6 K/mm3 (1.2-5.4) L 10/20/18 20:22 [place] # 0.5 K/mm3 (0.0-0.8) 10/20/18 20:22 Eos # 0.0 K/mm3 (0.0-0.4) 10/20/18 20:22 Baso # 0.0 K/mm3 (0.0-0.1) 10/20/18 20:22 Seg Neutrophils % 88.3 % (40.0-70.0) H 10/20/18 20:22 Seg Neutrophils # 9.1 K/mm3 (1.8-7.7) H 10/20/18 20:22 PT 13.9 Sec. (12.2-14.9) 10/20/18 22:47 INR 1.03 (0.87-1.13) 10/20/18 22:47 APTT 34.5 Sec. (24.2-36.6) 10/20/18 22:47 VBG pH 7.380 (7.320-7.420) 10/20/18 20:59 Sodium 141 mmol/L (137-145) 10/22/18 13:35 Potassium 4.1 mmol/L (3.6-5.0) D 10/22/18 13:35 Chloride 105.1 mmol/L (98-107) 10/22/18 13:35 Carbon Dioxide 26 mmol/L (22-30) 10/22/18 13:35 Anion Gap 14 mmol/L 10/22/18 13:35 BUN 7 mg/dL (9-20) L 10/22/18 13:35 Creatinine 0.6 mg/dL (0.8-1.5) L 10/22/18 13:35 Estimated GFR > 60 ml/min 10/22/18 13:35 BUN/Creatinine Ratio 12 % 10/22/18 13:35 Glucose 94 mg/dL (75-100) 10/22/18 13:35 POC Glucose 65 (70-105) L 10/23/18 21:16 Calcium 8.9 mg/dL (8.4-10.2) 10/22/18 13:35 Total Bilirubin 0.60 mg/dL (0.1-1.2) 10/22/18 13:35 Direct Bilirubin 0.3 mg/dL (0-0.2) H 10/21/18 14:21 Indirect Bilirubin 1.3 mg/dL 10/21/18 14:21 AST 11 units/L (5-40) 10/22/18 13:35 ALT 8 units/L (7-56) 10/22/18 13:35 Alkaline Phosphatase 48 units/L (35-129) 10/22/18 13:35 Total Protein 6.0 g/dL (6.3-8.2) L 10/22/18 13:35 Albumin 4.0 g/dL (3.9-5) 10/22/18 13:35 Albumin/Globulin Ratio 2.0 % 10/22/18 13:35 Urine Color Straw (Yellow) 10/21/18 02:14 Urine Turbidity Clear (Clear) 10/21/18 02:14 Urine pH 6.0 (5.0-7.0) 10/21/18 02:14 Ur Specific [place] 1.014 (1.003-1.030) 10/21/18 02:14 Urine Protein <15 mg/dl mg/dL (Negative) 10/21/18 02:14 Urine Glucose (UA) 50 mg/dL (Negative) 10/21/18 02:14 Urine Ketones 80 mg/dL (Negative) 10/21/18 02:14 Urine Blood Neg (Negative) 10/21/18 02:14 Urine Nitrite Neg (Negative) 10/21/18 02:14 Urine Bilirubin Neg (Negative) 10/21/18 02:14 Urine Urobilinogen < 2.0 mg/dL (<2.0) 10/21/18 02:14 Ur Leukocyte Esterase Neg (Negative) 10/21/18 02:14 Urine WBC (Auto) 1.0 /HPF (0.0-6.0) 10/21/18 02:14 Urine RBC (Auto) 1.0 /HPF (0.0-6.0) 10/21/18 02:14 U Epithel Cells (Auto) < 1.0 /HPF (0-13.0) 10/21/18 02:14 Urine Mucus Few /HPF 10/21/18 02:14 Salicylates < 0.3 mg/dL (2.8-20.0) L 10/20/18 20:22 Urine Opiates Screen Presumptive negative 10/21/18 02:14 Urine Methadone Screen Presumptive negative 10/21/18 02:14 Acetaminophen < 5.0 ug/mL (10.0-30.0) L 10/24/18 00:58 Ur Barbiturates Screen Presumptive negative 10/21/18 02:14 Ur Phencyclidine Scrn Presumptive negative 10/21/18 02:14 Ur Amphetamines Screen Presumptive negative 10/21/18 02:14 U Benzodiazepines Scrn Presumptive negative 10/21/18 02:14 Urine Cocaine Screen Presumptive negative 10/21/18 02:14 U Marijuana (THC) Screen Presumptive negative 10/21/18 02:14 Drugs of Abuse Note Disclamer 10/21/18 02:14 Plasma/Serum Alcohol < 0.01 % (0-0.07) 10/20/18 20:22
[2018-10-24] MEDS: HumuLIN R SUB-Q SCH ×3 (08:13→17:25)
[2018-10-24] MEDS: ZOLOFT PO SCH (09:52)
[2018-10-24] MEDS: HEPARIN SUB-Q SCH (09:53)
[2018-10-24] MEDS ORDERED: CLARITIN PO SCH (10:00)
--- NOTE | 2018-10-24 12:13 | Progress Note ---
Assessment and Plan Tylenol Overdose Suicidal Ideation Depression Diabetes - continue 1 on 1 sitter - prn oxygen for sats < 90% - complete psychiatry evaluation - glycemic control with SSI - PT/OT - GI & VTE prophylaxis - continue other care per attending / other consultants ... will see prn Subjective Date of service: 10/24/18 Principal diagnosis: Tylenol Overdose; Deppression; Diabetes Interval history: Patient is seen today for: Tylenol Overdose; Suicidal Ideation; Depression; Diabetes Seen and examined at bedside; 24hour events reviewed; nursing and respiratory care staff consulted; no adverse overnight events reported to me; up in chair; continues to do well; denies chest pains; no suicidal ideations; tentatively for discharge Objective Vital Signs - 12hr 10/24/18 04:17 Temperature 98.2 F Pulse Rate 100 H Respiratory 24 Rate Blood Pressure 133/69 O2 Sat by Pulse 100 Oximetry Constitutional: no acute distress, alert Eyes: non-icteric ENT: oropharynx moist Neck: supple, no lymphadenopathy, no JVD Effort: normal Ascultation: Bilateral: clear Percussion: Bilateral: not dull Cardiovascular: regular rate and rhythm Gastrointestinal: normoactive bowel sounds, soft, non-tender, non-distended Integumentary: normal Extremities: no cyanosis, no edema, pulses normal, no ischemia or petechiae Neurologic: normal mental status, non-focal exam, pupils equal and round, CN II- XII normal Psychiatric: mood appropriate, affect normal CBC and BMP: 10/20/18 20:22 10/22/18 13:35 ABG, PT/INR, D-dimer: PT/INR, D-dimer PT 13.9 Sec. (12.2-14.9) 10/20/18 22:47 INR 1.03 (0.87-1.13) 10/20/18 22:47 Abnormal lab findings: Abnormal Labs 10/20/18 10/20/18 10/20/18 20:22 20:22 20:22 RBC MCV MCH Lymph % (Auto) Lymph # Seg Neutrophils % Seg Neutrophils # Potassium 3.3 L BUN 4 L Creatinine 0.7 L Glucose 131 H POC Glucose Total Bilirubin Direct Bilirubin Total Protein Salicylates < 0.3 L Acetaminophen 219.3 H* 10/20/18 10/21/18 10/21/18 20:22 01:56 05:53 RBC 5.51 H MCV 80 L MCH 26 L Lymph % (Auto) 6.1 L Lymph # 0.6 L Seg Neutrophils % 88.3 H Seg Neutrophils # 9.1 H Potassium BUN Creatinine Glucose POC Glucose Total Bilirubin Direct Bilirubin Total Protein Salicylates Acetaminophen 197.1 H 109.6 H 10/21/18 10/21/18 10/21/18 06:07 09:36 09:36 RBC MCV MCH Lymph % (Auto) Lymph # Seg Neutrophils % Seg Neutrophils # Potassium BUN Creatinine Glucose POC Glucose 106 H Total Bilirubin 1.40 H Direct Bilirubin Total Protein Salicylates Acetaminophen 53.7 H 10/21/18 10/21/18 10/22/18 14:21 17:26 07:54 RBC MCV MCH Lymph % (Auto) Lymph # Seg Neutrophils % Seg Neutrophils # Potassium BUN Creatinine Glucose POC Glucose 115 H 109 H Total Bilirubin 1.60 H Direct Bilirubin 0.3 H Total Protein Salicylates Acetaminophen 10/22/18 10/22/18 10/23/18 11:24 13:35 08:03 RBC MCV MCH Lymph % (Auto) Lymph # Seg Neutrophils % Seg Neutrophils # Potassium BUN 7 L Creatinine 0.6 L Glucose POC Glucose 64 L 114 H Total Bilirubin Direct Bilirubin Total Protein 6.0 L Salicylates Acetaminophen 10/23/18 10/24/18 21:16 00:58 RBC MCV MCH Lymph % (Auto) Lymph # Seg Neutrophils % Seg Neutrophils # Potassium BUN Creatinine Glucose POC Glucose 65 L Total Bilirubin Direct Bilirubin Total Protein Salicylates Acetaminophen < 5.0 L Allied health notes reviewed: nursing
--- NOTE | 2018-10-24 15:36 | Progress Note ---
Subjective - Reason for Consult Consult date: 10/24/18 Reason for consult: Psychiatry Follow-up - Chief Complaint Chief complaint: "I have learned my lesson" Patient is a 18 y.o. AA male who presented to the ER for overdosing on Tylenol. Today the patient is calm and cooperative during the assessment. He stated that his metal health is the most important and will continue treatment with outpatient psy services. His mother Ms Dorie Santa stated that their entire family will be the patient's support system. She stated that she would be the one who take the patient to all his outpatient psy services apps. She stated that her son can return home once discharged. The patient denies SI/HI's and AVH's. He denies any side effects of his medication. Mental Status Exam - Vital signs Last Vital Signs Temp 98.8 F 10/24/18 13:03 Pulse 99 H 10/24/18 13:03 Resp 16 10/24/18 13:03 BP 138/71 10/24/18 13:03 Pulse Ox 98 10/24/18 13:03 - Exam Narrative exam: MSE: Appearance: calm, cooperative Behavior: regular eye contact Speech: regular rate and tone Mood: "okay" Affect: congruent to mood Thought Process: linear Thought Content: denies SI/HI's and AVH's Motor Activity: sitting up in bed Cognition: A/O x3 Insight: appropriate Judgment: appropriate Assessment and Plan Impression: MDD, Severe Type. Today the patient is calm and cooperative during the assessment. The patient is no threat to self. DDx: R/O Bipolar DO Suicide Risk Assessment I. This screening and assessment is based on information collected from the following sources: II. SUICIDE RISK SCREENING (within last 30 days): A.) Suicidal thoughts/behaviors: Yes SUICIDE RISK ASSESSMENT III. FACTORS THAT INCREASE RISK: A.) Demographic and Substance Use Factors: No B.) Current/Recent Factors (within past 3 months): Psychosocial/Environmental Factors: Life Stressors Physical Illness: None Cognitive/Psychological Factors: None C.) Historical Factors: None D.) Diagnostic/Symptom/Treatment Factors: None E.) Acute Risk Factor Severity (DESC; MILD/MOD/SEVERE): Mild Other factors for this individual that increase risk: None IV. FACTORS THAT DECREASE RISK: Resilience/Protective Factors: Patient want to decrease his stress Other factors for this individual that decrease risk: Patient denies a desire to harm self V. Clinician's Formulation of Risk and Determination of level of Care: This is a 18 y.o. AA male who ingested several Tylenol pills prior to his arrival to the ER. He acknowledged that he should have not ingested the pills and reached out the crisis hotline. He stated that he will follow-up with outpatient psy services once discharged. Since being hospitalized the patient has consistently denied the desire to harm himself. Additionally, he has become insightful about how to better address his current issues. The patient is not impaired by substance. He is able to take care of his ADLs and is not at imminent risk of harm to self or others. Consequently, it is the opinion of the treatment team that the patient is at low risk of suicide and does not meet cr iteria to continue an involuntary psychiatric hold. Estimation of Imminent Risk: Low due to the above explanation. Determination of Level of Care based on Suicide Risk: Outpatient follow-up. Narrative description of clinical reasoning. Given the fact that the patient is willing to engage in outpatient psy services care and has a supportive network (family), it is reasonable to expect that the patient will seek services. He is regretful of his decision to take the Tylenol pills. He stated, 'I have several things in his life to look forward to." At this current time, he is not impulsive and does not have any risk factors to increase the likelihood of impulsive behavior. Therefore, it is reasonable to expect that the patient will engage in outpatient/rehab services which will reduce further unsafe behaviors. . Plan and Interventions based on Suicide Risk: This patient will likely be stepped down to an outpatient mental health center in the community upon discharge and follow-up within 7 days of his discharge from the hospital. VII. Discharge/After Hours Support Plan: Patient can return back to the ER, call 911 or crisis line if symptoms of depression, anxiety, suicidality return. Recommendation/Plan: Rescind 1013 and continue Zoloft 25 mg PO daily for depression. Discussed possible suicidality/medication induced atj with the patient reference Zoloft. Discussed generalized coping skills with the patient. Dispo: The patient has a scheduled outpatient psy appt with his PCP Saturday (10/27/2018) @ 0945. Also, the patient has the option to be seen at [facility] for outpatient psy services. Staffed with Dr Jenkins.
--- NOTE | 2018-10-24 17:11 | Discharge Summary ---
Providers - Providers Date of Admission: 10/21/18 01:35 Attending physician: ELENA MTZ MD 10/21/18 02:03 Consult to Physician [CONS] Routine Comment: LEFT MESSAGE W A/S FOR DR VALIENTE 2337 Consulting Provider: ALEXANDRE MILLER Physician Instructions: Reason For Exam: ICU ADMISSION FOR TYLENOL OVERDOSE Primary care physician: NET DEVELOPER PROGRAMMER Hospitalization Condition: Serious Hospital course: 19-year-old man with history of depression and previous suicide attempts. He was brought by his family for altered mental status. She count on amounts of Aleve and Tylenol. His labs indicated a very high acetaminophen level. The patient was treated with acetylcysteine and IV fluids per poison control protocol. he improved, acetaminophen levels later became undetectable. He was seen by psychiatry. His medications were optimized. He was initially on a 1013 hold, psychiatry deemed him no longer a threat to himself or anyone. 1013 was rescinded, and he recommended that he be discharged on Zoloft and with outpatient psychiatry follow-up. Diagnosis Suicide attempts Drug overdose of Tylenol Hypokalemia major Depression Diabetes Disposition: DC-01 TO HOME OR SELFCARE Time spent for discharge: 33 minutes Core Measure Documentation - Palliative Care Palliative Care/ Comfort Measures: Not Applicable - Core Measures Any of the following diagnoses?: none (plan) Exam - Constitutional Vitals: Temp Pulse Resp BP Pulse Ox 98.8 F 99 H 16 138/71 98 10/24/18 13:03 10/24/18 13:03 10/24/18 13:03 10/24/18 13:03 10/24/18 13:03 General appearance: Present: no acute distress, well-nourished - EENT Eyes: Present: PERRL ENT: hearing intact, clear oral mucosa - Neck Neck: Present: supple, normal ROM - Respiratory Respiratory effort: normal Respiratory: bilateral: CTA - Cardiovascular Heart Sounds: Present: S1 & S2. Absent: rub, click - Extremities Extremities: pulses symmetrical, No edema Peripheral Pulses: within normal limits - Abdominal General gastrointestinal: Present: soft, non-tender, non-distended, normal bowel sounds Male genitourinary: Present: normal - Integumentary Integumentary: Present: clear, warm, dry - Musculoskeletal Musculoskeletal: gait normal, strength equal bilaterally - Psychiatric Psychiatric: appropriate mood/affect, intact judgment & insight - Neurologic Neurologic: CNII-XII intact, moves all extremities Plan Follow up with: PRIMARY CARE, [Primary Care Provider] - 3-5 Days Prescriptions: Sertraline [Zoloft] 25 mg PO QDAY #30 tablet
[2018-10-24 18:00] VITALS: BP 126/61
--- NOTE | 2018-10-30 10:19 | Query-Altered Level of Consc. ---
Mackenzie Driscoll____Clarenceuigbcarolina Date:____10/30/2018 Book Coverer/CDS:__Aline/Cristhian Phone#:__[phone] Exercise your independent professional judgment when responding to this query. Questions asked do not imply a particular answer is desired or expected. We greatly appreciate your clarification on this issue. Clinical Documentation States: 19-year-old man with history of depression and previous suicide attempts. He was brought by his family for altered mental status. She count on amounts of Aleve and Tylenol. His labs indicated a very high acetaminophen level. The patient was treated with acetylcysteine and IV fluids per poison control protocol. he improved, acetaminophen levels later became undetectable. Diagnosis Suicide attempts Drug overdose of Tylenol Please provide an appropriate diagnosis clarifying the Etiology and Acuity of this clinical scenario: [ ] Metabolic Encephalopathy [ x] Toxic Encephalopathy [ ] Toxic - Metabolic Encephalopathy [ ] Septic Encephalopathy with Sepsis [ ] Septic Encephalopathy without Sepsis [ ] Acute Hepatic Encephalopathy [ ] Subacute Hepatic Encephalopathy [ ] Other: [ ] Unable To Determine [ ]Comment/Explanation: Present on Admission: [ x] Yes (Y) [ ] Clinically undeterminable (W) [ ] No (N) Please also document response in your Progress Notes and/or Discharge Summary and indicate if the condition was present on admission. SHARLENED
== END 2018-10-24 20:00 | disposition home or self-care (01) | DRG 177 ==
LOC: ED 19:26 → CC1 10-21 01:35 → 3A 10-21 19:20
PROVIDERS: ADMIT Internal Medicine; ATTEND Internal Medicine
DX: J69.0 Pneumonitis due to inhalation of food and vomit (principal); G92 Toxic encephalopathy; R45.851 Suicidal ideations; T39.1X2A Poisoning by 4-Aminophenol derivatives, intentional self-harm, initial encounter; F32.9 Major depressive disorder, single episode, unspecified; E87.6 Hypokalemia; E11.9 Type 2 diabetes mellitus without complications; F03.90 Unspecified dementia, unspecified severity, without behavioral disturbance, psychotic disturbance, mood disturbance, and anxiety; T39.312A Poisoning by propionic acid derivatives, intentional self-harm, initial encounter; Y92.89 Other specified places as the place of occurrence of the external cause; Z79.84 Long term (current) use of oral hypoglycemic drugs
CPT/HCPCS: 36415; 70450; 71045; 80048; 80053; 80076; 80307; 80320; 81001; 82805; 82962; 85025; 85610; 85730; 93005; 93010; 96361; 96365; 96366; 96375; G0378; G0480; J0132; J1644; J2405; J3480; J7030; J7060; J7070